=== PATIENT | male | born 1955 | race Caucasian/White ===

== ENCOUNTER 2020-02-21 07:45 | Outpatient (REF) | payer BC, SELFPAY ==
--- NOTE | 2020-02-21 07:45 | FL_ITS ---
EXAMINATION: FL BARIUM SWALLOW CLINICAL INFORMATION: Dysphagia. Intermittent sensation of food getting stuck at back of throat approximately one year. Heartburn. COMPARISON: None TECHNIQUE: Barium swallow examination is performed using fluoroscopic evaluation in addition to multiple fluoroscopic spot views. The patient is imaged both upright and prone and using both thick and thin sulfate along with effervescent granules. Fluoroscopy time: 1.0 minutes DAP: 4.02 Gycm2 Images: 31 FINDINGS: Swallowing function is normal and there is no aspiration. The cervical esophagus has no web or diverticulum or stricture. There is no retention of swallowed contrast in the vallecular or piriform sinuses after swallowing. The cervical thoracic junction appears normal. The thoracic esophagus shows normal motility with no obstruction, stricture, or ulceration. There is physiologic herniation at the esophagogastric junction during the prone Valsalva maneuver without overt hiatal hernia. There is spontaneous gastroesophageal reflux seen to the level of the proximal thoracic esophagus during fluoroscopy. Fluoroscopy of the upper abdomen shows no gastric outlet obstruction. FL/FL barium swallow IMPRESSION: 1. Swallowing function and cervical esophagus unremarkable. 2. Gastroesophageal reflux to proximal thoracic esophagus. No hiatal hernia. 3. No ulceration or stricture.
== END 2020-02-21 07:46 | disposition home or self-care (01) ==
LOC: HO.XRAY 07:45
PROVIDERS: PCP Internal Medicine; Visit Provider Otolaryngology
DX: R13.19 Other dysphagia (principal); R12 Heartburn
CPT/HCPCS: 74220

== ENCOUNTER 2024-11-29 09:03 | Outpatient (AMB) | payer BC, SELFPAY ==
--- OUTSIDE RECORDS SUMMARY | 2024-11-24 23:59 | XMS_ITS | Continuity of Care Document ---
Author Organization [facility] ter Address [address] [place] [address]- Care Team Providers Care Peoplesoft Business Analyst Name Role Phone Armando QUIÑONES, Berry Primary Care Physician Encounter [facility] Date(s): 10/25/24 - 11/24/[address] [address]- Encounter Type: Triage Allergies, Adverse Reactions, Alerts Substance Criticality Severity Reaction Reaction Severity Status ragweed pollen allergen extract Active Immunizations Given and Recorded Vaccine Date Status Refusal Reason pneumococcal 20-valent conjugate vaccine 01/16/22 Recorded influenza virus vaccine, inactivated 01/16/22 Brandon rded influenza virus vaccine, inactivated 01/19/21 Brandon rded influenza virus vaccine, inactivated 01/01/20 Brandon rded influenza virus vaccine, inactivated 01/15/19 Brandon rded influenza virus vaccine, inactivated 01/23/18 Brandon rded influenza virus vaccine, inactivated 02/13/16 Brandon rded influenza virus vaccine, inactivated 12/26/14 Brandon rded influenza virus vaccine, inactivated 01/19/14 Brandon rded influenza virus vaccine, inactivated 02/09/13 Brandon rded influenza virus vaccine, inactivated 02/20/12 Brandon rded influenza virus vaccine, inactivated 03/02/10 Brandon rded influenza virus vaccine, inactivated 04/11/09 Brandon rded influenza virus vaccine, inactivated 04/18/08 Brandon rded pneumococcal 23-valent vaccine 01/30/21 Recorded pneumococcal 23-valent vaccine 04/03/20 Given SARS-CoV-2 (COVID-19) mRNA BNT-162b2 vac 01/30/21 Recorded SARS-CoV-2 (COVID-19) mRNA BNT-162b2 vac 07/30/20 Recorded SARS-CoV-2 (COVID-19) mRNA BNT-162b2 vac 07/08/20 Recorded tetanus/diphtheria/pertussis, acel(Tdap) 03/29/19 Recorded tetanus/diphtheria/pertussis, acel(Tdap) 02/03/07 Recorded tetanus-diphtheria toxoids (Td) 07/13/99 Recorded Medications Multivitamin Daily, 0 Refills, Maintenance, 06/19/22 9:12:00 AM EST, Partial fill upon patient request if the prescription is for a schedule II opioid drug. Start Date: 06/19/22 Status: Ordered Repeat number: 1 tamsulosin 0.4 mg oral capsule TAKE 1 CAPSULE BY MOUTH EVERYDAY AT BEDTIME Start Date: 10/12/24 Status: Ordered Repeat number: 1 valsartan 80 mg oral tablet 1, tablet, By Mouth, Daily, # 90 tablet, Refills 3, Tot. Refills 3, Maintenance, 10/12/24 6:11:00 AM EDT, Route to Pharmacy Electronically, [facility]/pharmacy #[id number], 183, cm, 10/02/23 9:26:00 EDT, Height Start Date: 10/12/24 Status: Ordered Quantity: 90.0 Unit: tablet Repeat number: 4 Problem List Condition Confirmation Course Effective Dates Status Health St atus Informant Chronic GERD Confirmed Active HTN (hypertension) Confirmed Active BPH associated with nocturia Confirmed Active Social History Social History Type Response Smoking Status Never (less than 100 in lifetime) entered on: 04/02/20 Sex Sex Representation Male (finding) Patient Care team information Care Team Personnel Name: Berry Roberts NP Position: S PCO Associate Professional Member Role: PCP Address: [address] [place] [address] [address] Telecom: Care Team Related Persons Name: WILFRID HUNTER Insurance Providers Guarantor name: STEPHANIE HUNTER Health Plan Information #: 1 Payer: MEDICARE B Payer Identifier: NA Member Number: [id number] Group Number: NA Subscriber Identifier: [id number] Relationship to Subscriber: self Coverage Type: NA Coverage Verification Date: NA Telecom: NA Address: NA Health Plan Information #: 2 Payer: [facility] Payer Identifier: NA Member Number: [id number] Group Number: [id number] Subscriber Identifier: [id number] Relationship to Subscriber: self Coverage Type: Medicare Other Coverage Verification Date: NA Telecom: NA Address: NA
== END 2024-11-29 10:07 | disposition home or self-care (01) ==
LOC: HO.HMGAL 09:03
PROVIDERS: PCP Internal Medicine; Visit Provider Registered Nurse Emergency
DX: J30.89 Other allergic rhinitis (principal)
CPT/HCPCS: 95117; 95165

== ENCOUNTER 2024-12-15 08:18 | Outpatient (AMB) | payer SELFPAY | END 2024-12-15 08:54 | disposition home or self-care (01) | LOC: HO.HMGAL 08:18 | PROVIDERS: PCP Internal Medicine; Visit Provider Registered Nurse Emergency | DX: J30.89 Other allergic rhinitis (principal) | CPT/HCPCS: 95117; 95165 ==

== ENCOUNTER 2024-12-27 10:50 | Outpatient (AMB) | payer SELFPAY ==
--- OUTSIDE RECORDS SUMMARY | 2024-12-27 14:22 | XMS_ITS | Encounter Summary ---
Author Organization [facility] Address [address] [place] [address] Care Team Providers Care German Professor Name Role Phone Brooke Diane MD Primary Care Provider Bret Salgado DO Primary Care Provider Rosy vailable Encounter Details Date Type Department Care Team Description 04/25/2016 [facility] Medical Records [address] [place] [address] Abstract, Provider Social History Tobacco Use Types Packs/Day Years Used Date Smoking Tobacco: Former Cigarettes 0.8 4 Q uit: 04/14/1975 Smokeless Tobacco: Never Alcohol Use Standard Drinks/Week Comments Yes 0 (1 standard drink = 0.6 oz pur e alcohol) 5 beers/wk Sex Assigned at Date Recorded Not on file Job Start Date Occupation Industry Not on file Not on file Not on file documented as of this encounter Plan of Treatment Not on file documented as of this encounter Visit Diagnoses Not on filedocumented in this encounter Care Teams German Professor Relationship Specialty Start Date End Date Brooke Diane MD PCP - General Internal Medicine 04/18/15 08/02/20 Bret Diaz DO PCP - General Internal Medicine 08/03/20 documented as of this encounter
--- OUTSIDE RECORDS SUMMARY | 2024-12-27 14:22 | XMS_ITS | Encounter Summary ---
Author Organization [facility] Address [address] [place] [address] Care Team Providers Care Outside Physical Damage Appraiser Name Role Phone Brooke Diane MD Primary Care Provider Bret Salgado DO Primary Care Provider Rosy vailable Encounter Details Date Type Department Care Team Description 03/27/2016 It Project Lead Report Medical Records [address] [place] [address] Wendy Knapp MD Social History Tobacco Use Types Packs/Day Years [...] on filedocumented in this encounter Care Teams Outside Physical Damage Appraiser Relationship Specialty Start Date End Date Brooke Diane MD PCP - General Internal Medicine 04/18/15 08/02/20 Bret Diaz DO PCP - General Internal Medicine 08/03/20 documented as of this encounter
--- OUTSIDE RECORDS SUMMARY | 2024-12-27 14:22 | XMS_ITS | Encounter Summary ---
Author Organization [facility] Address [address] [place] [address] Care Team Providers Care Acetylene Operator Name Role Phone Brooke Diane MD Primary Care Provider Bret Salgado DO Primary Care Provider Rosy vailable Reason for Visit * Reason Onset Date Comments Testing 04/21/2020 Encounter Details Date Type Department Care Team Description 04/21/2020 Telephone Adult Medicine [address] [address] Brooke Diane MD Testing Social History Tobacco Use Types Packs/Day Years Used Date Smoking Tobacco: Former Cigarettes 0.8 4 Q uit: 04/14/1975 Smokeless Tobacco: Never Alcohol Use Standard Drinks/Week Comments Yes 0 (1 standard drink = 0.6 oz pur e alcohol) 5 beers/wk Sex Assigned at Date Recorded Not on file Job Start Date Occupation Industry Not on file Not on file Not on file COVID-19 Exposure Response Date Recorded In the last month, have you been in contact with someone who was confirmed or suspected to have Coronavirus / COVID-19? No / Unsure 04/12/2020 10:07 AM EST documented as of this encounter Miscellaneous Notes * Telephone Encounter - Connor Holland - 04/21/2020 9:41 AM EST Order refaxed to [facility] at [phone] * Telephone Encounter - Nubia Oliveros - 04/21/2020 9:35 AM EST Pt calling requesting CT order to be faxed to [facility] documented in this encounter Plan of Treatment Not on file documented as of this encounter Visit Diagnoses Not on filedocumented in this encounter Care Teams Acetylene Operator Relationship Specialty Start Date End Date Brooke Diane MD PCP - General Internal Medicine 04/18/15 08/02/20 Bret Diaz DO PCP - General Internal Medicine 08/03/20 documented as of this encounter
--- OUTSIDE RECORDS SUMMARY | 2024-12-27 14:22 | XMS_ITS | Encounter Summary ---
Author Organization [facility] Address [address] [place] [address] Care Team Providers Care Line Helper Name Role Phone Sincere Benitez MD Primary Care Provider Unavail able Brooke Diane MD Primary Care Provider Unavaila Bret Jin DO Primary Care Provider Rosy vailable Encounter Details Date Type Department Care Team Description 02/13/2015 Supervisor Testing Report Medical Records [address] [place] [address] Social History Tobacco Use Types Packs/Day Years Used Date Smoking Tobacco: Former Cigarettes 0.8 4 Q uit: 04/14/1975 Smokeless Tobacco: Never Alcohol Use Standard Drinks/Week Comments Yes 0 (1 standard drink = 0.6 oz pur e alcohol) 4/wk Sex Assigned at Date Recorded Not on file Job Start Date Occupation Industry Not on file Not on file Not on file documented as of this encounter Plan of Treatment Not on file documented as of this encounter Visit Diagnoses Not on filedocumented in this encounter Care Teams Line Helper Relationship Specialty Start Date End Date Sincere Benitez MD PCP - General 05/30/99 04/17/15 Brooke Diane MD PCP - General Internal Medicine 04/18/15 08/02/20 Bret Diaz DO PCP - General Internal Medicine 08/03/20 documented as of this encounter
--- OUTSIDE RECORDS SUMMARY | 2024-12-27 14:22 | XMS_ITS | Encounter Summary ---
Author Organization [facility] Address [address] [place] [address] Care Team Providers Care Job Spotter Name Role Phone Brooke Diane MD Primary Care Provider Bret Salgado DO Primary Care Provider Rosy vailable Encounter Details Date Type Department Care Team Description 04/02/2020 [facility] Medical Records [address] [place] [address] Cameron Heaton NP Social History Tobacco Use Types Packs/Day Years [...] on filedocumented in this encounter Care Teams Job Spotter Relationship Specialty Start Date End Date Brooke Diane MD PCP - General Internal Medicine 04/18/15 08/02/20 Bret Diaz DO PCP - General Internal Medicine 08/03/20 documented as of this encounter
--- OUTSIDE RECORDS SUMMARY | 2024-12-27 14:22 | XMS_ITS | Encounter Summary ---
Author Organization [facility] Address [address] [place] [address] Care Team Providers Care Catalog Librarian Name Role Phone Brooke Diane MD Primary Care Provider Bret Salgado DO Primary Care Provider Rosy vailable Encounter Details Date Type Department Care Team Description 06/12/2015 Ballistics Expert Forensic Report Medical Records [address] [place] [address] Social History Tobacco Use Types Packs/Day Years [...] on filedocumented in this encounter Care Teams Catalog Librarian Relationship Specialty Start Date End Date Brooke Diane MD PCP - General Internal Medicine 04/18/15 08/02/20 Bert Diaz DO PCP - General Internal Medicine 08/03/20 documented as of this encounter
--- OUTSIDE RECORDS SUMMARY | 2024-12-27 14:22 | XMS_ITS | Encounter Summary ---
Author Organization [facility] Address [address] [place] [address] Care Team Providers Care Chlorobutadiene Scrubber Operator Name Role Phone Sincere Benitez MD Primary Care Provider Unavail able Brokoe Diane MD Primary Care Provider Unavaila Bret Jin DO Primary Care Provider Rosy vailable Encounter Details Date Type Department Care Team Description 10/25/2011 Transfer Records Medical Records [address] [place] [address] Abstract, Provider Social History Tobacco Use Types [...] on filedocumented in this encounter Care Teams Chlorobutadiene Scrubber Operator Relationship Specialty Start Date End Date Sincere Benitez MD PCP - General 05/30/99 04/17/15 Brooke Diane MD PCP - General Internal Medicine 04/18/15 08/02/20 Bret Diaz DO PCP - General Internal Medicine 08/03/20 documented as of this encounter
--- OUTSIDE RECORDS SUMMARY | 2024-12-27 14:22 | XMS_ITS | Encounter Summary ---
Author Organization [facility] Address [address] [place] [address] Care Team Providers Care Sourcing Manager Name Role Phone Sincere Benitez MD Primary Care Provider Unavail able Brooke Diane MD Primary Care Provider Unavaila ble Bret Diaz DO Primary Care Provider Rosy vailable Encounter Details Date Type Department Care Team Description 02/02/2015 Release of Information Medical Records [address] [place] [id number] Abstract, Provider Social History Tobacco Use Types [...] on filedocumented in this encounter Care Teams Sourcing Manager Relationship Specialty Start Date End Date Sincere Benitez MD PCP - General 05/30/99 04/17/15 Brooke Diane MD PCP - General Internal Medicine 04/18/15 08/02/20 Bret Diaz DO PCP - General Internal Medicine 08/03/20 documented as of this encounter
--- OUTSIDE RECORDS SUMMARY | 2024-12-27 14:22 | XMS_ITS | Encounter Summary ---
Author Organization [facility] Address [address] [place] [address] Care Team Providers Care Templer Head Name Role Phone Brooke Diane MD Primary Care Provider Bret Salgado DO Primary Care Provider Rosy vailable Encounter Details Date Type Department Care Team Description 06/23/2015 Highway Maintenance Technician Report Medical Records [address] [place] [address] Tunde Orta MD Social History Tobacco Use Types Packs/Day [...] on filedocumented in this encounter Care Teams Templer Head Relationship Specialty Start Date End Date Brooke Diane MD PCP - General Internal Medicine 04/18/15 08/02/20 Bret Diaz DO PCP - General Internal Medicine 08/03/20 documented as of this encounter
--- OUTSIDE RECORDS SUMMARY | 2024-12-27 14:22 | XMS_ITS | Encounter Summary ---
Author Organization [facility] Address [address] [place] [address] Care Team Providers Care Pest Control Operator Name Role Phone Brooke Diane MD Primary Care Provider Bret Salgado DO Primary Care Provider Rosy vailable Reason for Visit * Reason Onset Date Comments Medication 02/22/2016 Encounter Details Date Type Department Care Team Description 02/22/2016 Telephone Gastroenterology - [address] [address] Cristhian Ruiz MD Medication Social History Tobacco Use Types Packs/Day Years [...] on file documented as of this encounter Miscellaneous Notes * Telephone Encounter - Cristhian Ruiz MD - 02/22/2016 10:36 AM EST Prescribed * Telephone Encounter - Kasie Winters - 02/22/2016 10:28 AM EST Patient has scheduled a procedure, please prescribe prep. Thank you! documented in this encounter Plan of Treatment Not on file documented as of this encounter Visit Diagnoses Not on filedocumented in this encounter Care Teams Pest Control Operator Relationship Specialty Start Date End Date Brooke Diane MD PCP - General Internal Medicine 04/18/15 08/02/20 Bret Diaz DO PCP - General Internal Medicine 08/03/20 documented as of this encounter
--- OUTSIDE RECORDS SUMMARY | 2024-12-27 14:22 | XMS_ITS | Encounter Summary ---
Author Organization [facility] Address [address] [place] [address] Care Team Providers Care Supervisor Bleach Plant Name Role Phone Brooke Diane MD Primary Care Provider Bret Salgado DO Primary Care Provider Rosy vailable Encounter Details Date Type Department Care Team Description 04/24/2020 Pt. Non Urgent Medical Question Adult Medicine [address] [address] Magdiel Griffin MD Abnormal EKG (Primary Dx); Chest pain, unspecified type Social History Tobacco Use Types Packs/Day Years [...] AM EST documented as of this encounter Progress Notes * Kristy Kohler L.P.NRicarda - 04/25/2020 9:16 AM ESTFrom: Esdras Soliz To: Magdiel Griffin MD Sent: 04/24/2020 7:24 PM EST Subject: Nuclear Stress Test Since my visit on 04/12 I have not heard from your office regarding the nuclear stress test. I have tried to call on numerous occasions but had to drop from the queue. I was on hold for at least 10 minutes with my longest lasting 30 minutes. Please let me know when I can expect an appointment. Feng Ross documented in this encounter Plan of Treatment Scheduled Orders Name Type Priority Associated Diagnoses Orde r Schedule CARDIAC STRESS TEST W/REGADENOSON Cardiology Routine Abnormal EKG Chest pain, unspecified type Expected: 04/26/2020, Expires: 07/25/2020 documented as of this encounter Visit Diagnoses Diagnosis Abnormal EKG- Primary Nonspecific abnormal electrocardiogram (ECG) (EKG) Chest pain, unspecified type documented in this encounter Care Teams Supervisor Bleach Plant Relationship Specialty Start Date End Date Brooke Diane MD PCP - General Internal Medicine 04/18/15 08/02/20 Bret Diaz DO PCP - General Internal Medicine 08/03/20 documented as of this encounter
--- OUTSIDE RECORDS SUMMARY | 2024-12-27 14:22 | XMS_ITS | Encounter Summary ---
Author Organization [facility] Address [address] [place] [address] Care Team Providers Care Bad Credit Collector Name Role Phone Sincere Benitez MD Primary Care Provider Unavail able Brooke Diane MD Primary Care Provider Unavaila Bret Jin DO Primary Care Provider Rosy vailable Encounter Details Date Type Department Care Team Description 02/08/2015 Fueler Report Medical Records [address] [place] [address] Robert Redman PA-C Social History Tobacco Use Types Packs/Day Years [...] on filedocumented in this encounter Care Teams Bad Credit Collector Relationship Specialty Start Date End Date Sincere Benitez MD PCP - General 05/30/99 04/17/15 Brooke Diane MD PCP - General Internal Medicine 04/18/15 08/02/20 Bret Diaz DO PCP - General Internal Medicine 08/03/20 documented as of this encounter
== END 2024-12-27 11:23 | disposition home or self-care (01) ==
LOC: HO.HMGAL 10:50
PROVIDERS: PCP Internal Medicine; Visit Provider Registered Nurse Emergency
DX: J30.89 Other allergic rhinitis (principal)
CPT/HCPCS: 95117; 95165

== ENCOUNTER 2025-01-17 08:35 | Outpatient (AMB) | payer MEDICARE, OTHER, SELFPAY | END 2025-01-17 08:37 | disposition home or self-care (01) | LOC: HO.HMGAL 08:35 | PROVIDERS: PCP Nurse Practitioner Family; Visit Provider Registered Nurse Emergency | DX: J30.89 Other allergic rhinitis (principal) | CPT/HCPCS: 95117; 95165 ==

== ENCOUNTER 2025-01-31 09:09 | Outpatient (AMB) | payer MEDICARE, OTHER, SELFPAY | END 2025-01-31 09:10 | disposition home or self-care (01) | LOC: HO.HMGAL 09:09 | PROVIDERS: PCP Nurse Practitioner Family; Visit Provider Registered Nurse Emergency | DX: J30.89 Other allergic rhinitis (principal) | CPT/HCPCS: 95117; 95165 ==

== ENCOUNTER 2025-02-14 09:51 | Outpatient (AMB) | payer MEDICARE, OTHER, SELFPAY ==
--- OUTSIDE RECORDS SUMMARY | 2025-02-14 11:26 | XMS_ITS | Data Portability ---
Author Organization ID - [facility], [facility] - INPATIENT Address [address] [place] [address] Care Team Providers Care Manager Inventory Management Name Role Phone FROY TONY Primary Care Provider Assessment Encounter Date Assessment Date Assessment LastModified by Organization Details LastModified Time 07/13/2024 07/13/2024 MOD 25 HUI INEZ We have discussed now the INEZ at the follow up visit. We have discussed the continued use of quad/hamstring/add uctor/abductor strengthening and stretching. We have also discussed dislocation precautions (if any) and anti-biotic precautions. Antibiotic prescriptions refills are available at any time. Continuing functional rehabilitation to maintain the sense of proper pelvic balance, and continued gait training is helpful chcf. Patient will continue exercise program, use ice/heat modalities, along w/ prn NSAIDS (if safe for patient) and Tylenol prn. Will contact us for follow up with any urgent issues, otherwise follow up visits as scheduled with routine future xrays. RIGHT KNEE We've discussed the many forms of conservative care for the treatment of the pain and disability of knee arthritis. OTC and Prescription NSAIDs have been discussed. These have been recommended for those patients who are able to tolerate these types of medications, and advised they should be taken with food. Next we've discussed injection into the knee with a steroid solution. Pro's and con's were discussed. If the steroid injections help, they certainly can be repeated. Moderation of activities, use of a cane or crutch, exercise modalities were all discussed. Physical therapy can be considered to help with disability and limited motion but may have little ability to improve pain symptoms. Hyaluronic acid injections can also be used to manage the pain associated with knee arthritis. The pro's and con's of that modality have been discussed. If the patient wishes, the actual injections can be performed by me here in the office. LEFT KNEE We've discussed the many forms of conservative care for the treatment of the pain and disability of knee arthritis. OTC and Prescription NSAIDs have been discussed. These have been recommended for those patients who are able to tolerate these types of medications, and advised they should be taken with food. Next we've discussed injection into the knee with a steroid solution. Pro's and con's were discussed. If the steroid injections help, they certainly can be repeated. Moderation of activities, use of a cane or crutch, exercise modalities were all discussed. Physical therapy can be considered to help with disability and limited motion but may have little ability to improve pain symptoms. Hyaluronic acid injections can also be used to manage the pain associated with knee arthritis. The pro's and con's of that modality have been discussed. If the patient wishes, the actual injections can be performed by me here in the office. After discussion of the risks including, but not limited to infection, localized soreness and swelling, reaction to medications - the patient would like to proceed per recommendation with a left knee cortisone injection under ultrasound guidance. Confirmed that the patient does not have history of prior adverse reactions, active infections, or relevant allergies. There was no erythema, or warmth, and the skin was clear. The skin was sterilized with alcohol & Betadine. Topical anesthesia was achieved with 3cc 1% lidocaine via a 21-gauge needle. [facility] Ultrasound was used to evaluate knee and ensure accuracy of needle placement for aspiration and injection. After re-prepping with Betadine, using a 21-gauge needed, 4 cc of synovial fluid was aspirated. I then injected 4cc 1% lidocaine and 2cc of 80mg Kenalog under ultrasound guidance using sterile gel and a sterile probe cover into the knee joint using the superior lateral approach. Injection into the joint was visualized and confirmed on ultrasound, images were saved. The injection was completed without complication and a Band-Aid was applied. The patient tolerated the procedure well and was instructed to avoid strenuous activity for the next 24-48 hours and use ice, NSAIDs or Tylenol for pain as needed. The patient will call immediately with any signs of infection or allergic reaction. XRAYS were evaluated today during patient's visit, independently interpreted prior to receiving or reviewing Radiologist's interpretation and dictated report. This is a summary of the discussion with the patient and in no way is intended to be a verbatim summation of everything discussed. This visit has been transcribed using voice recognition software, spelling errors may occur. Please contact provider with any questions. [email or web address] Not available 07/13/2024 12:59:37 09/03/2024 09/03/2024 ASSESSMENT: Esdras Soliz is a 68-year-old male with right shoulder pain. PLAN: The patient elected to proceed with a right shoulder subacromial and glenohumeral joint injection after discussing the risks, including infection, localized soreness and swelling, and reaction to medications. The skin was sterilized with alcohol and Betadine, and [employer] Ultrasound was used to ensure accuracy of placement. 2cc's of 2% Lidocaine and 2cc's of Kenalog 40mg were injected into the subacromial space and glenohumeral joint without incident. Ultrasound images were scanned into the patient's chart. The injection was completed without complication, and a Band-Aid was applied. The patient tolerated the procedure well and was instructed to avoid strenuous activity for the next 24-48 hours and use ice, NSAIDs, or Tylenol for pain as needed. The patient will call immediately with any signs of infection or allergic reaction. [email or web address] Not available 09/03/2024 07:44:01 12/14/2024 12/14/2024 Concern on exam for possible insufficiency fracture, we will go ahead and get an MRI for evaluation and then do a review with him via telehealth. We cannot do another cortisone injection he just had one a week ago, minimal relief. He can take NSAIDs as needed, he has Mobic at home, he can add on Tylenol. He will continue doing a stretching and strengthening program best he can at home. He will follow-up with us after the MRI for review. Can use an assistive device like cane or crutch as needed. We've discussed the many forms of conservative care for the treatment of the pain and disability of knee arthritis. OTC and Prescription NSAIDs have been discussed. These have been recommended for those patients who are able to tolerate these types of medications, and advised they should be taken with food. Next we've discussed injection into the knee with a steroid solution. Pro's and con's were discussed. If the steroid injections help, they certainly can be repeated. Moderation of activities, use of a cane or crutch, exercise modalities were all discussed. Physical therapy can be considered to help with disability and limited motion but may have little ability to improve pain symptoms. Hyaluronic acid injections can also be used to manage the pain associated with knee arthritis. The pro's and con's of that modality have been discussed. If the patient wishes, the actual injections can be performed by me here in the office. Finally we've begun to talk about total knee arthroplasty as the treatment for the intractable knee arthritic patient. Dr. Orta and I have discussed this patient, reviewed the recent history/complaint, reviewed available diagnostic tests including XRAYS, and discussed my assessment. We have created the described care plan together. We will treat and follow up with the patient accordingly. This is a summary of the discussion with the patient and in no way is intended to be a verbatim summation of everything discussed. This visit has been transcribed using voice recognition software, spelling errors may occur. Please contact provider with any questions. [email or web address] Not available 12/14/2024 13:26:47 12/21/2024 12/21/2024 This visit was conducted as a real time interactive audio/visual telehealth visit conducted via [employer] The patient was identified by name and date of and consented to this telehealth visit. The patient was at their home in [place] and I was at my [place] office. Participants of the telehealth visit included myself and the patient . This visit was done over the course of 20 minutes including record review. Patient Name: Esdras Soliz Date of : 1955 Date of Exam: 12-16-2024 Referring Physician: Robert Bee [address], [address] [place] [address] Exam: MR Knee (C-) CPT 06881 - Left Room Description: [facility] 3.0T History: Pain in the left knee, question insufficiency fracture or internal derangement.. Technique: MRI of the left knee was performed without intravenous contrast. Comparison: None. Findings: Joint effusion: No joint effusion is present. Hoffa's fat pad is unremarkable. There is trace fluid in a Keenan's cyst with edema in the adjacent soft tissues, suggesting partial rupture. Menisci: There is a complex tear of the medial meniscal body and posterior third with small partially detached, displaced fragment extending superiorly from the body. The lateral meniscus appears intact. Tendons and ligaments: The ACL and PCL are intact. The collateral ligaments are unremarkable. The iliotibial band is unremarkable. The extensor mechanism appears normal. Articular cartilage and bone: Mild irregular chondral thinning is seen in the central aspect of the medial femoral condyle with small focus of subchondral marrow edema like signal in the posterior central aspect of the medial femoral condyle. Mild chondral thinning is seen on the lateral tibial plateau. There is chondral thinning in the periphery of the medial patellar facet with several partial thickness chondral fissures in the medial facet and patellar apex. Trochlear cartilage appears normal in thickness. Impression: 1. Complex tear of the medial meniscal body and posterior third with partially detached, displaced fragment extending superiorly from the body. 2. Mild tricompartmental degenerative change. 3. No evidence of fracture. at this time we are going to recommend follow-up with Abel Bernabe and Dr. Levi to see if patient is a candidate for knee arthroscopy. Patient has done well with prior arthroscopy on the other knee. He is not interested in a repeat injection at this time. [email or web address] Not available 12/21/2024 12:43:10 12/28/2024 12/28/2024 ASSESSMENT: - Left knee pain, medial meniscus tear, complex tear with flipped fragment PLAN: The patient and provider discussed treatment options. A home-based physical therapy program was elected as the initial approach. The patient was advised to contact the office if his symptoms worsen acutely or if he wishes to pursue further physical therapy or injection therapy. Follow-up is scheduled for February 12, at which time surgical intervention will be considered if there is no improvement. The patient is comfortable with this plan. [email or web address] Not available 12/28/2024 11:44:38 Plan of Treatment Reminders Order Date Submit Date Provider Last Modified By Organization Details Last Modified Time Details Appointments None recorded. Lab None recorded. Referral None recorded. Procedures None recorded. Surgeries None recorded. Imaging MRI, knee, w/o contrast - LEFT KNEE MRI TO EVAL FOR POSSIBLE INSUFFICIEN CY FRACTURE OR INTERNAL DERANGMENT *pas*please call patient to schedule 2024 025 [facility] ([facility]), [address] [place], [address], 16:09:21 Medication Orders Kenalog 40 mg/mL suspension for injection 2024 025 [email or web address] 05 [facility] #[id number], [address] [place], [address], 12:58:21 Kenalog-80 80 mg/mL suspension for injection 2024 025 [email or web address] 05 [facility] #[id number], [address] [place], [address], 12:58:23 Patient TargetsNo targets recorded. Patient InstructionsNo instructions recorded. Reason for Referral None Reported. Results Created Date Observation Date Name Description Value Unit Range Abnormal Flag Note LastModifiedBy Organization Detail LastModifiedTime 12/18/1912/16/2024 MRI, knee, w/o contr ast No observ ation record ed. [email or web address] [facility] [address] [place], [address], 12/17/2024 16:52:14 Result Notes None recorded. 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 Loc alized, primary osteoarth ritis of the pelvic region and thigh Loc alized, primary osteoarth ritis of the pelvic region and thigh Not Available [facility] 2 01:02:27 History of operation on musculosk eletal system 237490236 Active 2017 History of musculosk eletal operation Not Available [facility] 2 01:02:27 History of artificia l joint 557742313 Active 2019 History of artificia l joint Not Available [facility] 2 01:02:27 Osteoarth ritis of knee 524865740 Active 2019 Osteoarth ritis of knee Not Available [facility] 2 01:02:27 Trochante leeal bursitis of right hip 40395399469 9100 Active 2020 Not Available [facility] 2 01:02:27 Idiopathi c osteoarth ritis 883733479 Active 2021 Primary osteoarth ritis Not Available [facility] 2 01:02:27 Notes:Problem Name: Total hi p replacement Prosthesis Problem Code: 543341340 Problem Code Type: SNOMED Status: Active Start_Date: 08/05/2017 - Problem Name: Hip prosthesis Problem Code: 53904262 Problem Code Type: SNOMED Status: Active Start_Date: 09/20/2020 - Problem Notes None recorded. Procedures Surgical History Date Name Laterality Status Provider Name and Address Organization Details Recorded Time 07/19/19 20 Orthopaedic Surgery completed Brooklyn Galvez [facility] 11/06/2023 12:32:56 07/08/19 18 Orthopaedic Surgery completed Brooklyn Galvez [facility] 11/06/2023 12:32:41 05/17/19 17 Orthopaedic Surgery completed Irena Soliz [facility] 11/30/2019 08:33:56 05/15/19 16 Orthopaedic Surgery completed Marichuy Adames [facility] 05/02/2016 09:34:23 04/14/19 00 Orthopaedic Surgery completed Marichuy Adames [facility] 05/02/2016 09:34:38 Imaging Results None recorded. Procedure Notes None recorded. Medical Equipment None Reported. Allergies Allergen ID Allergen Name Allergen Category Reaction Reaction Severity Criticality Documentation Date Start Date Code Code System Note Provider Name and Address Organization Details Recorded Time 347066 mold extract environme nt Not available Not available Not available 12/24/2021 63664 8 RxNorm React ion: Unkno wn, sever ity: Unkno wn Not Available [facility] 2 01:45:14 Medications Name Sig Start Date Stop Date Status Note LastModified by Organization Details LastModified Time amoxicilli n 500 mg capsule TAKE 4 CAPSULES BY MOUTH 1 HOUR PRIOR TO DENTAL PROCEDUR E active Not Available Not Available No t Available clindamyci n HCl 300 mg capsule 2 capsules po 1 hour prior to dental work 2018 active Not Available Not Available Not Avai lable azithromyc in 250 mg tablet TAKE 2 TABLETS BY MOUTH TODAY, THEN TAKE 1 TABLET DAILY FOR 4 DAYS DIRECTED 09/03 completed Not Available Not Available Not Available ibuprofen 800 mg tablet BID 12/23 completed Not Available Not Available Not Available meloxicam 15 mg tablet TAKE 1 TABLET BY MOUTH EVERY DAY active Not Available Not Available No t Available prednisone 20 mg tablet TAKE 3 TABLET (ORAL) EVERY MORNING FOR 5 DAYS 11/05 completed Not Available Not Available Not Available fluorourac il 5 % topical cream APPLY THIN LAYER TO FOREHEAD , TEMPLES, AND SCALP TWICE A DAY 4 WEEKS IN A ROW TO TOLERANC E. active Not Available Not Available No t Available valsartan 80 mg tablet TAKE 1 TABLET BY MOUTH EVERY DAY active Not Available Not Available No t Available prednisone 5 mg/5 mL oral solution TAKE 5MLS GARGLE AND SWALLOW TWICE A DAY FOR 7 DAYS 09/03 completed Not Available Not Available Not Available amoxicilli n 500 mg tablet Take 4 tablets by oral route 1 hour prior to dental procedur e 09/03 completed Not Available Not Available Not Available Kenalog 40 mg/mL suspension for injection Take 2 mL by injectio n route. 12/14 completed US Guided Not Available Not Available Not Available oxycodone- acetaminop hen 5 mg-325 mg tablet 05/30 completed Not Available Not Available Not Available tamsulosin 0.4 mg capsule TAKE 1 CAPSULE BY MOUTH EVERYDAY AT BEDTIME active Not Available Not Available No t Available diclofenac sodium 75 mg tablet,del ayed release 05/02 completed Not Available Not Available Not Available mupirocin 2 % topical ointment 11/29 completed Not Available Not Available Not Available warfarin 1 mg tablet 11/29 completed Not Available Not Available Not Available oxycodone 5 mg tablet Take 1-2 tablet(s ) EVERY 4-6 HOURS by oral route. 11/29 completed Not Available Not Available Not Available calcium active Not Available Not Avail able Not Available omeprazole active Not Available Not Av ailable Not Available Glucosamin e active Not Available Not Available Not Available Chondroiti n Sulfate active Not Available Not Available No t Available Adult Low Dose Aspirin active Not Available Not Available Not Available Gavilyte-C 240 gram-22.72 gram-6.72 gram-5.84 gram oral solution 05/02 completed Not Available Not Available Not Available Kenalog-80 80 mg/mL suspension for injection Take 2 mL by injectio n route. 12/14 completed US Guided Not Available Not Available Not Available Fluzone Quad (PF) 60 mcg (15 mcg x 4)/0.5 mL IM syringe 11/29 completed Not Available Not Available Not Available Vitals Date Recorded Body height Provider Name an d Address Organization Details Last Updated DateTime 07/13/2024 182.88 cm Natty Thurston [address], [address], [facility] 07/13/2024 12:46:13 Date Recorded Body height Body mass index (BMI) Body weight Provider Name and Address Organization Details Last Updated DateTime 09/03/2024 182.88 cm 25.5 kg/m2 08251.37 g Zane Garcia [facility] 09/03/2024 07:22:23 Date Recorded Body height Body mass index (BMI) Body weight Provider Name and Address Organization Details Last Updated DateTime 12/14/2024 182.88 cm 25.5 kg/m2 44566.37 g Robert Bee NP [address], [place], [address] 12/14/2024 12:50:39 Date Recorded Body height Body mass index (BMI) Body weight Provider Name and Address Organization Details Last Updated DateTime 12/21/2024 182.88 cm 25.5 kg/m2 19928.37 g Lanny Ayers [facility] 12/21/2024 12:13:05 Date Recorded Body height Body mass index (BMI) Body weight Provider Name and Address Organization Details Last Updated DateTime 12/28/2024 182.88 cm 25.5 kg/m2 68979.37 g Norm Levi MD [address], [place], [address], [facility] 12/28/2024 11:24:10 Date Recorded Body height Provider Name an d Address Organization Details Last Updated DateTime 12/28/2024 182.88 cm Lalitha Mcgowan [facility] 12/28/2024 13:22:21 Social History Question Answer Notes LastModified by Organizat ion Details LastModified Time Tobacco Smoking Status Former Smoker Irena lang [facility] 11/30/2019 08:31:50 Auto Related Injury? No Information not available 05/02/2016 What Is Your Level Of Caffeine Consumption? Moderate [email or web address] Information not available 11/30/2019 Do You Engage In Light Exercise (e.g. Light Walking, Housework, Etc)? Yes Information not available 12/28/2024 If Yes To Cortisone, What Date Did You Have Them Done? 12/06/2024 Information not available 12/28/2024 Have You Ever Had A Cortisone Injection? Yes Information not available 12/28/2024 What Treatments Have You Tried For This Condition? Injection Information not available 12/28/2024 Date Of Injury/Duration Of Injury (weeks, Months, Years) 08/2019 [email or web address] Information not available 11/30/2019 Have Any Other Tests Been Done For This Problem? No Tests [email or web address] Information not available 11/30/2019 Is This Condition/proble m Affecting Your Ability To Exercise Or Perform Activities Of Daily Living? Yes [email or web address] Information not available 11/30/2019 How Much Tobacco Do You Smoke? No [email or web address] Information not available 11/06/2023 What Types Of Sporting Activities Do You Participate In? Golf, Strength Training, Spinning Information not available 05/02/2016 How Many Years Have You Smoked Tobacco? 5 [email or web address] Information not available 11/06/2023 Work Related Injury? No Information not available 05/02/2016 Sex: Unknown Functional Status Question Answer Note LastModified by Organizat ion Details LastModified Time What is your level of alcohol consumption? Occasional [email or web address] Information not available 11/30/2019 Do you or have you ever used smokeless tobacco? Never used smokeless tobacco [email or web address] Information not available 11/30/2019 Are you currently employed? No Information not available 12/28/2024 What is your occupation? retired [email or web address] Information not available 11/30/2019 Do you or have you ever used e-cigarettes or vape? Never used electronic cigarettes [email or web address] Information not available 11/30/2019 What is your exercise level? Moderate [email or web address] Information not available 11/30/2019 Mental Status None recorded. Family History Nothing Reported. Medical History Condition Response Blood Clots / Phlebitis N HIV or AIDS N Depression or Anxiety N High Blood Pressure Y MRSA N Emphysema / Chronic Bronchitis N Any Other Significant Medical Issues N Reaction to General/Local Anesthesia N Blood Disorder: Anemia, clotting disorde r, etc. (please specify) N Weight Gain / Loss N Hepatitis / Jaundice N Diabetes: Type I or II (please specify) N Kidney / Bladder Infections N Heart Condition: Heart Attac k, Afib, Irregular Heartbeat, etc. 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 (please specify) N Pulmonary Embolism N Past Encounters Encounter ID Performer Location Encounter Start Date Encounter Closed Date Diagnosis/Indication Diagnosis SNOMED-CT Code Diagnosis ICD10 Code Diagnosis IMO Codes Diagnosis Note [id number] NORM LEVI MD [facility] am Office [address] [place] [address] 05/02/2016 09:09:07 05/03/2016 12:37:13 Subacromial impingement 444879095 M75.41 Strain of rotator cuff capsule 77251337 S46.011A [id number] [facility] [address] [place] [address] 05/30/2016 08:40:48 05/31/2016 14:09:46 Subacromial impingement 588734459 M75.41 [id number] [facility] [address] [place] [address] 06/27/2016 10:17:33 06/27/2016 12:06:16 Loose body in shoulder joint 785170778 M24.011 Osteoarthritis 666731930 M19.011 [id number] NORM LEVI MD [facility] Office [address] [place] [address] 08/08/2016 12:58:11 08/08/2016 14:56:40 Subacromial impingement 883994873 M75.41 [id number] NORM LEVI MD [facility] Office [address] [place] [address] 11/30/2019 07:33:36 11/30/2019 08:47:01 Pain of shoulder region 06108148 M25.726 [id number] LIOR PAGE [facility] Office [address] [facility] [employer] [place] [address] 11/06/2023 11:55:27 11/06/2023 13:24:36 Pain of right shoulder joint [id number] M25.286 [id number] Robert Bee NP [address], [address] [place] [address] 07/13/2024 11:56:28 07/13/2024 14:05:02 Osteoarthritis of bilateral hip joints [id number] 24180 M16.0 Osteoarthr itis of right knee joint [id number] 20926 M17.11 Osteoarthr itis of left knee joint [id number] 61140 M17.12 [id number] LIOR Page [address], [address] [place] [address] 09/03/2024 06:44:36 09/03/2024 08:07:38 Pain of right shoulder region [id number] M25.511 Osteoarthr itis of joint of right shoulder region [id number] 88979 M19.469 [id number] Robert Bee NP [address], [address] [place] [address] 12/14/2024 12:24:37 12/14/2024 16:09:09 Pain of left knee joint [id number] 01351 M25.562 [id number] Robert Bee NP [facility] [address] [facility] [employer] [place] [address] 12/21/2024 12:12:46 12/21/2024 15:51:57 Pain of left knee joint [id number] 97840 M25.562 [id number] Norm Levi MD [facility] [address], [address] [place] [address] 12/28/2024 10:38:19 12/28/2024 11:58:58 Tear of medial meniscus of left knee joint [id number] 7104 S83.242A Health Concerns Section Related Observation LastModified by Organization Detai ls LastModified Time None Recorded Concern Status LastModified by Organization Details LastModified Time None Recorded Advance Directives Directive None Recorded Payers Insurance Date Sequence Insurance Name Policy Number Policy Solomon Covered Member ID Solomon Member ID Guarantor Name 12/23/2024 1 [place]: [facility] [employer] Esdras Soliz [id number] Esdras Soliz 01/18/2025 2 [facility] - PLAN 1 (MEDICARE SUPPLEMENT) [id number] Esdras Soliz [id number] Esdras Soliz 12/23/2024 [facility] - SPECIALITY CLAIMS (MEDICARE DME REGION A) Esdras Soliz [id number] Esdras Soliz 11/05/2023 1 [facility] [id number] Esdras Soliz [id number] Esdras Soliz 11/15/2019 1 [facility] [id number] Esdras Soliz [id number] Esdras Soliz Notes Date Note Type Note Provider Name and Address Organization Details Recorded Time 07/13/2024 text/html ROS as noted in the HPI This is a 68-year-old gentleman, comes in today for evaluation of his right knee, left knee, and his bilateral hips. 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 Tunde Orta. They have done very well. He is been able to function, have better range of motion, and get through the day without pain. His bilateral knees are achy, left more than the right. Inner knee pain, feels some slight catching. Sore going up and down the stairs. Dull pain at rest. His right knee also has some mild to moderate medial joint line pain, he has had 2 arthroscopy surgeries for torn meniscus on that side in the past. Robert Bee NP [address], [place], [address], [facility], [facility] 07/14/2024 16:11:31 09/03/2024 text/html Esdras Soliz is a 68-year-old male who presents for an established visit for a right shoulder cortisone injection. He was last seen on 11/06/2023. The patient has a history of resistance training, which he believes has helped manage his symptoms. However, after the pandemic, he experienced increased pain due to the inability to work out. The patient has previously undergone MRI imaging for his shoulder. He reports that the pain has returned, necessitating another cortisone injection. The patient has had both hips replaced and expresses concern about potentially needing shoulder replacement surgery in the future. He is able to golf despite his hip and knee replacements. The patient has no history of prior adverse reactions, active infections, or relevant allergies. LIOR Page [address], [place], [address], [facility], [facility] 09/03/2024 08:23:12 12/14/2024 text/html ROS as noted in the HPI 68-year-old, comes in today for evaluation of his left knee. Patient has seen me in the past for early arthritic changes in the left knee, but now he is very frustrated, over a week ago he was walking, and developed significant medial joint line pain, weightbearing pain, difficult to pushoff go up and down stairs, with some new swelling. Prior to this he was walking maybe up to 6 miles per day often in the [place]. Over the last week a lot of medial joint line pain, limping, really frustrated this is a new type of medial ache. He went saw an urgent care orthopedist who did a cortisone injection and this gave him absolutely no relief. He is thinking something structural may be going on. Robert Bee NP [address], [place], [address], [facility], [facility] 12/17/2024 10:48:31 12/21/2024 text/html ROS as noted in the HPI This is a 68-year-old, comes in today telehealth visit for review of her recent MRI. Patient has continued catching and locking symptoms in this knee, difficulty going up and down the stairs. He has had a cortisone injection, by another orthopedic practice that gave him no relief. He has done over 6 weeks of PT, and tried modifying his activity but quality of life continues to be impacted by this knee pain. Robert Bee NP [address], [place], [address], [facility], [facility] 12/28/2024 10:25:54 12/28/2024 text/html Esdras Soliz is a 69-year-old male who presents for evaluation of left knee pain. He was referred by Robert Bee for consideration of knee arthroscopy. The patient reports a history of knee discomfort, with significant worsening approximately three weeks ago, on December 04. He describes the pain as most pronounced when using stairs. He has previously undergone two cortisone injections: one administered in this practice on July 13, which provided significant relief, and another on December 05 at an outside institution, which did not yield improvement. He has tried bracing, which exacerbated his symptoms. The patient notes that changes in footwear, specifically switching to shoes with inadequate arch support, contributed to the worsening of his symptoms. He has since transitioned to footwear with better support, which has helped stabilize his condition. The patient underwent an MRI on December 16, 2024, which was reviewed by Robert Bee and revealed a complex tear of the mid-body of the medial meniscus with a flipped fragment. The patient reports that his left knee pain has plateaued since the initial flare-up. He has a history of significant improvement following physical therapy for other orthopedic issues and is seeking reevaluation for his current knee condition. Norm Levi MD [address], [place], [address], [facility], [facility] 12/29/2024 15:11:04
== END 2025-02-14 09:53 | disposition home or self-care (01) ==
LOC: HO.HMGAL 09:51
PROVIDERS: PCP Nurse Practitioner Family; Visit Provider Registered Nurse Emergency
DX: J30.89 Other allergic rhinitis (principal)
CPT/HCPCS: 95117; 95165

== ENCOUNTER 2025-03-02 09:22 | Outpatient (AMB) | payer MEDICARE, OTHER, SELFPAY | END 2025-03-02 09:23 | disposition home or self-care (01) | LOC: HO.HMGAL 09:22 | PROVIDERS: PCP Nurse Practitioner Family; Visit Provider Registered Nurse Emergency | DX: J30.89 Other allergic rhinitis (principal) | CPT/HCPCS: 95117; 95165 ==

== ENCOUNTER 2025-03-14 08:58 | Outpatient (AMB) | payer MEDICARE, OTHER, SELFPAY | END 2025-03-14 09:00 | disposition home or self-care (01) | LOC: HO.HMGAL 08:58 | PROVIDERS: PCP Nurse Practitioner Family; Visit Provider Registered Nurse Emergency | DX: J30.89 Other allergic rhinitis (principal) | CPT/HCPCS: 95117; 95165 ==

== ENCOUNTER 2025-03-30 09:24 | Outpatient (AMB) | payer MEDICARE, OTHER, SELFPAY | END 2025-03-30 09:25 | disposition home or self-care (01) | LOC: HO.HMGAL 09:24 | PROVIDERS: PCP Nurse Practitioner Family; Visit Provider Registered Nurse Emergency | DX: J30.89 Other allergic rhinitis (principal) | CPT/HCPCS: 95117; 95165 ==